=== PATIENT | female | born 1955 | race Caucasian/White ===

== ENCOUNTER 2022-02-20 15:11 | Emergency (ER) | payer MEDICARE | END 2022-02-20 15:59 | disposition home or self-care (01) | LOC: CSHERS 15:11 | DX: J02.0 Streptococcal pharyngitis (principal); E03.9 Hypothyroidism, unspecified; E11.9 Type 2 diabetes mellitus without complications; I10 Essential (primary) hypertension; E78.00 Pure hypercholesterolemia, unspecified; Z79.899 Other long term (current) drug therapy; Z79.4 Long term (current) use of insulin | CPT/HCPCS: 99283 ==

== ENCOUNTER 2023-06-13 19:47 | Emergency (ER) | payer MEDICARE ==
[~2023-06-13 19:47] MED LIST: Iopamidol 370 76% 100 ML VIAL ONE
[2023-06-13 21:57] LABS: #Eosinphils 0.1 10x3/uL (0.0-0.5); #Monocytes 0.4 10x3/uL (0.0-1.1); #Neutrophils 6.7 10x3/uL (1.5-8.4); %Basophils 0.3 % (0.0-2.0); %Eosinophils 1.6 % (0.0-6.0); %Lymphocytes 17.1 % (18.0-47.0); %Neutrophils 75.7 % (40.0-75.0); Hemoglobin 12.8 g/dL (12.0-15.5); Mean Corpuscular HGB CONC 32.8 g/dL (32.0-36.0); Mean Corpuscular Hemoglobin 27.7 pg (27.0-33.0); Mean Corpuscular Volume 84.4 fl (81.6-98.3); Platelet Count 238 10x3/uL (150-450); RBC Distribution Width 14.6 % (11.5-14.5); Red Blood Cell (RBC) Count 4.62 10x6/uL (3.90-5.03); White Blood Cell (WBC) Count 8.9 10x3/uL (3.5-10.5)
[2023-06-13 22:11] LABS: ALT (SGPT) 20 U/L (8-55); AST (SGOT) 15 U/L (5-34); Albumin 4.1 g/dL (3.4-4.8); Alkaline Phosphatase 75 U/L (40-110); Anion Gap 14 mmol/L (10-20); BUN (Urea Nitrogen) 29 mg/dL (9.8-20.1); Bilirubin, Total 0.3 mg/dL (0.2-1.2); Calc. Creatinine Clearance 0 mL/min (70-130); Calcium 9.3 mg/dL (7.8-10.44); Carbon Dioxide 22 mmol/L (23-31); Chloride 107 mmol/L (98-107); Estimated GFR 41; Globulin 2.7 g/dL (2.4-3.5); Glucose 264 mg/dL (80-115); Protein, Total 6.8 g/dL (5.8-8.1); Sodium 139 mmol/L (136-145)
[2023-06-14 13:25] LABS: Hemoglobin A1c 7.3 % (4.0-6.0)
== END 2023-06-13 22:34 | disposition home or self-care (01) ==
LOC: CSHERS 19:47
DX: H49.22 Sixth [abducent] nerve palsy, left eye (principal); E11.65 Type 2 diabetes mellitus with hyperglycemia; I10 Essential (primary) hypertension; E03.9 Hypothyroidism, unspecified; E78.00 Pure hypercholesterolemia, unspecified; Z79.899 Other long term (current) drug therapy; Z79.4 Long term (current) use of insulin
CPT/HCPCS: 36415; 70450; 70496; 70498; 80053; 83036; 85025; Q9967

== ENCOUNTER 2025-04-05 12:02 | Outpatient (CLI) | payer MEDICARE | END 2025-04-05 12:03 | disposition home or self-care (01) | LOC: CSHMRI 12:02 | PROVIDERS: ATTEND Student in an Organized Health Care Education/Training Program | DX: M47.816 Spondylosis without myelopathy or radiculopathy, lumbar region (principal); Z98.890 Other specified postprocedural states; M48.061 Spinal stenosis, lumbar region without neurogenic claudication; M48.07 Spinal stenosis, lumbosacral region | CPT/HCPCS: 72148 ==